=== PATIENT | female | born 2000 | race Caucasian/White ===

== ENCOUNTER 2019-06-10 18:57 | Emergency (ER) | payer MEDICAID ==
[~2019-06-10] VITALS: Ht 160 cm; Wt 63.0 kg
[2019-06-10 19:38] VITALS: Ht 160 cm; Wt 63.0 kg
[2019-06-10 21:52] VITALS: BP 103/66
== END 2019-06-10 21:52 | disposition home or self-care (01) ==
LOC: ED 18:57
DX: J02.9 Acute pharyngitis, unspecified (principal)